=== PATIENT | male | born 1955 | race Caucasian/White ===

== ENCOUNTER 2018-01-03 07:35 | Emergency (ER) | payer OTHER ==
[~2018-01-03] VITALS: Ht 162.6 cm; Wt 103.4 kg
[2018-01-03 07:41] VITALS: Ht 162.6 cm; Wt 103.4 kg
[2018-01-03 09:03] VITALS: BP 153/109
== END 2018-01-03 09:03 | disposition short-term general hospital (02) ==
LOC: ED 07:35
DX: S69.92XA Unspecified injury of left wrist, hand and finger(s), initial encounter (principal); X58.XXXA Exposure to other specified factors, initial encounter; Y93.89 Activity, other specified; Y92.89 Other specified places as the place of occurrence of the external cause; Y99.8 Other external cause status
CPT/HCPCS: Q0092

== ENCOUNTER 2019-07-03 10:44 | Emergency (ER) | payer OTHER ==
[~2019-07-03] VITALS: Ht 172.7 cm; Wt 104.3 kg
[2019-07-03 10:48] VITALS: BP 163/94; Ht 172.7 cm; Wt 104.3 kg
== END 2019-07-03 12:45 | disposition home or self-care (01) ==
LOC: ED 10:44
DX: M25.461 Effusion, right knee (principal)
CPT/HCPCS: J1885; Q0092